=== PATIENT | male | born 1990 | race Two or more races ===

== ENCOUNTER 2018-05-03 00:17 | Emergency (ER) | payer MEDICAID ==
[~2018-05-03] VITALS: Ht 182.9 cm; Wt 147.4 kg
[2018-05-03 00:28] VITALS: Ht 182.9 cm; Wt 147.4 kg
[2018-05-03 02:30] VITALS: BP 141/88
== END 2018-05-03 02:30 | disposition home or self-care (01) ==
LOC: ED 00:17
DX: S39.012A Strain of muscle, fascia and tendon of lower back, initial encounter (principal); X58.XXXA Exposure to other specified factors, initial encounter; Y93.89 Activity, other specified; Y92.89 Other specified places as the place of occurrence of the external cause; Y99.8 Other external cause status
CPT/HCPCS: J1885

== ENCOUNTER 2020-05-16 08:32 | Emergency (ER) | payer OTHER ==
[~2020-05-16] VITALS: Ht 182.9 cm; Wt 126.6 kg
[2020-05-16 08:45] VITALS: Ht 182.9 cm; Wt 126.6 kg
[2020-05-16 09:30] VITALS: BP 128/79
== END 2020-05-16 09:30 | disposition home or self-care (01) ==
LOC: ED 08:32
DX: Z11.3 Encounter for screening for infections with a predominantly sexual mode of transmission (principal); R03.0 Elevated blood-pressure reading, without diagnosis of hypertension
CPT/HCPCS: 87491; 87591; J0696